=== PATIENT | female | born 1945 ===

== ENCOUNTER → 2021-01-20 15:08 | Outpatient (CLI) | payer MEDICARE, SELFPAY ==
--- NOTE | ~2021-01-20 | MR_ITS ---
EXAMINATION: MR brain/brain stem wo/w con EXAM DATE: 01/20/2021 16:23 INDICATION: Forgetfulness, loss of balance loss of balance. TECHNIQUE: Magnetic resonance imaging (MRI) of the brain/brain stem obtained without contrast. Sagit janell T1, axial diffusion, gradient echo (T2*), T1, T2, FLAIR sequences obtained. Patient was then inj ected with 13 cc intravenous Multihance contrast. Axial and coronal postcontrast T1 weighted sequence s obtained. There is no prior study for comparison. FINDINGS: There are no areas of restricted diffusion to suggest acute infarction. There is no acute hemorrhage seen on the T2*, a hemosiderin sensitive sequence. No intraparenchymal brain mass lesion. There is mild periventricular and subcortical T2/FLAIR signal hyperintensity, nonspecific but probab ly related to small vessel ischemic disease (microangiopathy). There are no extra-axial collections . Flow voids are seen in the cerebral arteries on the T2-weighted sequences consistent with their ex pected patency. Patient has had bilateral ocular lens surgery. Soft tissue is unremarkable. Trace right mastoid effusion. There are no areas of abnormal enhancement on the post contrast images. IMPRESSION: Mild microangiopathy. Reviewed, dictated and finalized at location A. IMPRESSION: Mild microangiopathy.
[2021-01-20 15:53] LABS: Estimated Glomerular Filt Rate > 60
== END ==
PROVIDERS: PCP Internal Medicine; Visit Provider Internal Medicine
DX: R41.3 Other amnesia (principal); R26.89 Other abnormalities of gait and mobility; I73.9 Peripheral vascular disease, unspecified
CPT/HCPCS: 70553; A9577